=== PATIENT | male | born 1990 | race Caucasian/White ===

== ENCOUNTER 2023-09-17 11:36 | Emergency (ER) | payer OTHER, SELFPAY ==
[2023-09-17 11:38] VITALS: BP 146/94
--- NOTE | 2023-09-17 13:23 | ED.GENMED ---
History of Present Illness
General
Chief Complaint: Fever
Source: patient
Exam Limitations: none
Time Seen by Provider: 09/17/23 11:58
Nursing documentation reviewed up to this point in time: agreed with
Travel History
Have you had any contact with someone who has COVID-19?: No
Do you have any symptoms of coronavirus? Fever > 100 degrees, chills, cough, shortness of breath, sore throat, loss of taste or smell, muscle aches, or headache?: No
History of Present Illness
History of Present Illness:
32 yo male h/o tonsillectomy presents stating fever 102 last night with tender right cervical lymph node and body aches. States fever broke at 2 a.m. but tender lump right side neck still there. Body aches gone. Took nothing for the fever. Denies
know sick contacts, no recent travel. Denies headache/n/v/d. Denies sore throat.
Past History
Past History
ED Past Medical History: None
ED Past Surgical History: Orthopedic
Patient has exhibited threatening behavior?: No
Social History
Tobacco: Non-smoker
Alcohol: None
Personal: Single
Living: with roommate
Employment: Employed (receiving dock checker)
Review of Systems
Review of Systems
Allergies reviewed?: Yes
All Other Systems: ROS reviewed and negative except as documented in HPI and ROS
Constitutional: Reports fever; Denies chills
EENT: Reports other (tender swollen lump right neck); Denies sore throat
Respiratory: Denies trouble breathing
Cardiac: Denies chest pain
ABD/GI: Denies abdominal pain or nausea
Musculoskeletal: Reports other (body aches last night have subsided)
Skin: Reports no symptoms
Neurological: Reports no symptoms
Phy Exam
Physical Exam
Physical Exam:
GENERAL: No acute distress. A&Ox3.
CONSTITUTIONAL: Afebrile.
EYES: PERRL, conjunctivae normal
Neck: Supple, one tender mildly swollen Right cervical lymph node
ENMT: moist mucus membranes, Pharynx nl, (tonsils removed), TMs normal
RESPIRATORY: Regular respirations, nonlabored, lungs clear.
CARDIOVASCULAR: Regular rate and rhythm, no murmurs, no rubs.
GI: Soft, nontender
MUSCULOSKELETAL: Moves with ease. Well perfused.
SKIN: Warm, dry, pink. There is a 5 mm round lesion on right postero-lateral neck with two tiny scabs. Surrounding skin is normal. Rest of scalp is normal
PSYCH: Normal mood and affect. Well kept, interactive and appropriate
NEUROLOGIC: Awake, alert and oriented. No focal neurological deficits
Course
Vital Signs
Initial and Last Documented VS:
Initial Vital Signs
Temp Pulse Resp BP Pulse Ox
98.7 F 83 16 146/94 97
09/17/23 11:38 09/17/23 11:38 09/17/23 11:38 09/17/23 11:38 09/17/23 11:38
Last Documented Vital Signs
Temp Pulse Resp BP Pulse Ox
98.7 F 83 16 146/94 97
09/17/23 11:38 09/17/23 11:38 09/17/23 11:38 09/17/23 11:38 09/17/23 11:38
MDM/Problems Addressed
Differential Diagnosis Includes:
pharyngitis, viral illness, reactive lymphadenopathy
MDM/Problems Addressed:
32 yo male h/o tonsillectomy presents stating fever 102 last night with tender right cervical lymph node and body aches. States fever broke at 2 a.m. but tender lump right side neck still there. Body aches gone. Took nothing for the fever. Denies
know sick contacts, no recent travel. Denies headache/n/v/d. Denies sore throat.
The lesion on right posterior lateral neck pt states has been there for a few days, he squeezed some pus from it yesterday
This is most likely the cause of his infectious symptoms
He is afebrile, no body aches, feeling better. No indication for further drainage/I&D as area appears to be drying up
Rx for Mupirocin ointment sent to his pharmacy.
Final diagnosis: locally infected pimple/folliculitis
*Critical Care Note
Total Time (30-74mins, 75-104mins- exclusive of procedures): Not Applicable
ED Attending Note
-
Portions of this chart may have been created with voice recognition software.� Occasional wrong word or��sound alike� substitutions may have occurred due to the inherent limitations of voice recognition software.
Discharge Plan
Departure
Patient Disposition: Home (Routine Discharge)
Date of Disposition: 09/17/23
Time of Disposition: 12:28
Patient with high blood pressure during this ER visit?: No
Condition: Good
Discharge Problem:
Cervical adenopathy, Superficial folliculitis due to bacteria
Instructions: Bacterial Folliculitis (DC), Lymphadenitis (DC)
Prescriptions:
New
mupirocin 2 % ointment
1 applic topical BID Qty: 15 0RF
No Action
ofloxacin 0.3 % drops
10 drp otic (ear) DAILY
Rx Instructions:
Right ear. daily for 10 days
ciprofloxacin HCl [Cipro] 500 mg tablet
500 mg PO BID Qty: 20 0RF
hydrocodone-acetaminophen 5-325 mg tablet
1 tab PO Q8H PRN (Reason: pain) Qty: 10 0RF
Referrals:
Gunnar Barth, DO [Family Provider] - As needed
Stand Alone Forms: Return to Work
Activity Restrictions/Additional Instructions:
As we discussed, this is a local superficial infection from either a pimple or a hair
I sent a prescription to your pharmacy for mupirocin ointment to apply twice a day
The lymph node swelling and tenderness are simply a reaction to the skin infection and should resolve on its own within the next week.
Seek medical care if the area becomes more red, swollen, or you feel worse in any way.
Interventions
Interventions:
*Risk Screen - Suicide Last Done: 09/17/23 11:38
*General Assessment Last Done: 09/17/23 11:38
*Neglect/Abuse Screening Last Done: 09/17/23 11:38
ED- Fall Risk Assessment Last Done: 09/17/23 12:41
*ED COVID-19 Vaccine History Last Done: 09/17/23 12:03
*Nursing Disposition Last Done: 09/17/23 12:41
ED- Neurological Assessment Last Done: 09/17/23 12:02
ED-Skin Assessment Last Done: 09/17/23 12:02
Discharge Date and Time
Discharge Date/Time: 09/17/23 12:42
Print Language: ANGOLAN
== END 2023-09-17 12:42 | disposition home or self-care (01) ==
LOC: EMR 11:36
PROVIDERS: EMERGENCY PHYSICIAN Emergency Medicine; FAMILY PHYSICIAN Family Medicine
DX: L73.9 Follicular disorder, unspecified (principal); R59.0 Localized enlarged lymph nodes
CPT/HCPCS: 99282